=== PATIENT | male | born 1995 | race Caucasian/White ===

== ENCOUNTER 2021-11-11 12:35 | Emergency (ER) | payer SELFPAY ==
[2021-11-11] MEDS ORDERED: Boostrix 0.5 ML (Tdap) VIAL ONE (12:53)
[2021-11-11 13:11] LABS: #Basophils 0.1 thou/uL (0.0-0.2); #Eosinphils 0.4 thou/uL (0.0-0.7); #Lymphocytes 2.7 thou/uL (1.20-3.40); #Monocytes 0.6 thou/uL (0.11-0.59); #Neutrophils 4.8 thou/uL (1.40-6.50); %Basophils 0.9 % (0.0-1.0); %Eosinophils 4.4 % (0.0-10.0); %Lymphocytes 31.8 % (21.0-51.0); %Monocytes 7.4 % (0.0-10.0); %Neutrophils 55.5 % (42.0-75.0); Hemoglobin 15.1 g/dL (14.0-18.0); Mean Corpuscular HGB CONC 33.2 g/dL (32.0-36.0); Mean Corpuscular Volume 93.4 fL (78.0-98.0); Mean Platelet Volume 7.8 fL (7.4-10.4); Platelet Count 269 thou/uL (130-400); RBC Distribution Width 12.4 % (11.5-14.5); Red Blood Cell (RBC) Count 4.86 mill/uL (4.70-6.10); White Blood Cell (WBC) Count 8.6 thou/uL (4.8-10.8)
[2021-11-11 13:18] LABS: Acetaminophen Less than 6.0 mcg/mL (10.0-30.0); Alcohol 29 mg/dL (Less than 10); Salicylate Less than 8.0 mg/dL (15.0-30.0)
[2021-11-11 13:20] LABS: ALT (SGPT) 25 U/L (8-55); AST (SGOT) 24 U/L (5-34); Albumin 4.2 g/dL (3.5-5.0); Alcohol 19 mg/dL (Less than 10); Alkaline Phosphatase 67 U/L (40-110); Anion Gap 15 mmol/L (10-20); BUN (Urea Nitrogen) 11 mg/dL (8.9-20.6); Bilirubin, Total 0.4 mg/dL (0.2-1.2); CK (CPK) 410 U/L (30-200); Calc. Creatinine Clearance 0 mL/min (70-130); Calcium 8.9 mg/dL (7.8-10.44); Carbon Dioxide 23 mmol/L (22-29); Chloride 108 mmol/L (98-107); Globulin 3.1 g/dL (2.4-3.5); Glucose 83 mg/dL (70-105); Potassium 3.8 mmol/L (3.5-5.1); Protein, Total 7.3 g/dL (6.0-8.3); Sodium 142 mmol/L (136-145)
[2021-11-11] MEDS ORDERED: OLANZapine 5 MG TAB ONE (13:34)
[2021-11-11] MEDS ORDERED: Sodium Chloride 0.9% 100 ML ONE (13:38)
[2021-11-11] MEDS ORDERED: Sodium Chloride 0.9% 0 ML ONE (13:38)
[2021-11-11] MEDS ORDERED: CEFAZOLIN 1 GM VIAL ONE (13:38)
[2021-11-11] MEDS ORDERED: Acetaminophen 500 MG TAB ONE (15:46)
[2021-11-11 16:18] LABS: Bilirubin Negative (Negative); Blood, Urine Negative (Negative); Clarity Clear (Clear); Glucose, Urine (Dipstick) Negative (Negative); Ketone, Urine Negative (Negative); Leukocyte Negative (Negative); Nitrite Negative (Negative); Protein, Urine (Dipstick) Negative (Neg-Trace); Specific Gravity, Urine 1.025 (1.005-1.030); Urobilinogen 0.2 mg/dL (Less than 2)
[2021-11-11 16:40] LABS: THC/Cannabinoid Screen Detected (NotDetected)
[2021-11-11 16:41] LABS: Amphetamine Not Detected (NotDetected); Barbiturates Screen Not Detected (NotDetected); Benzodiazepine Screen Not Detected (NotDetected); Cocaine Metabolite Screen Not Detected (NotDetected); Medtox Control Line Valid? VALID (VALID); Methadone Not Detected (NotDetected); Methamphetamine Not Detected (NotDetected); Opiate Screen Not Detected (NotDetected); Oxycodone Screen Not Detected (NotDetected); Phencyclidine (PCP) Not Detected (NotDetected); Tricyclic Screen Not Detected (NotDetected)
[2021-11-11] MEDS ORDERED: Cephalexin 250 MG CAP ONE (19:31)
[2021-11-11 20:14] LABS: SARS-CoV-2 NAA Rapid Test Not Detected (NotDetected)
[2021-11-11] MEDS ORDERED: Ibuprofen 200 MG TAB ONE (22:35)
== END 2021-11-11 22:37 ==
LOC: NAV ERS 12:35
DX: S92.511A Displaced fracture of proximal phalanx of right lesser toe(s), initial encounter for closed fracture (principal); S91.301A Unspecified open wound, right foot, initial encounter; F23 Brief psychotic disorder; Z20.822 Contact with and (suspected) exposure to COVID-19; F12.90 Cannabis use, unspecified, uncomplicated; X74.01XA Intentional self-harm by airgun, initial encounter; Z79.899 Other long term (current) drug therapy
CPT/HCPCS: 36415; 80053; 80306; 80307; 81003; 82550; 84443; 85025; 90471; 90715; 96365; J0690; U0002

== ENCOUNTER 2021-11-21 13:32 | Emergency (ER) | payer SELFPAY | END 2021-11-21 14:18 | disposition home or self-care (01) | LOC: NAV ERS 13:32 | DX: M25.562 Pain in left knee (principal); Z79.899 Other long term (current) drug therapy | CPT/HCPCS: 99283 ==